=== PATIENT | female | born 1965 | race Two or more races ===

== ENCOUNTER 2020-01-26 16:14 | Emergency (ER) | payer OTHER ==
[~2020-01-26] VITALS: Ht 162.6 cm; Wt 89.8 kg
[2020-01-26 16:28] VITALS: BP 117/91
== END 2020-01-26 18:17 | disposition home or self-care (01) ==
LOC: ER 16:14
DX: J20.8 Acute bronchitis due to other specified organisms (principal); B97.89 Other viral agents as the cause of diseases classified elsewhere; F41.9 Anxiety disorder, unspecified; R03.0 Elevated blood-pressure reading, without diagnosis of hypertension; Z20.828 Contact with and (suspected) exposure to other viral communicable diseases
CPT/HCPCS: 36415; 71045; 87426